=== PATIENT | female | born 1940 | race Caucasian/White ===

== ENCOUNTER 2016-07-07 17:51 | Emergency (ER) | payer BC ==
--- NOTE | ~2016-07-07 | CT4 ---
[facility] A Service of [facility] RADIOLOGY TEXT RESULTS PATIENT: LEONARD LU LOCATION: [facility] : 42 UNIT #: [id number] AGE: [address]: Jerardo Trent MD SEX: F ORDER DR: [id number] [facility] [address]. [place], [place] [address] [id number] MR#: [id number] #: [id number] NAME: LEONARD LU : 1940 SEX: F STUDY DATE/TIME: 07/07/2016 18:50 UNIT: [facility] ROOM: STUDY DESCRIPTION: CT Abd and Pelv Wo Cont Attending Physician: Jerardo Trent M.D. Ordering Physician: Jerardo Trent M.D. Primary Care Physician: Nigel Marcelo M.D. MEDICAL IMAGING REPORT This report is preliminary unless electronic signature is present EXAM CT of abdomen and pelvis without contrast. DATE OF EXAM 07/07/2016 HISTORY Diffuse abdomen pain, nausea and vomiting since yesterday. TECHNIQUE NOTE: This CT exam was performed with one or more of the following radiation dose reduction techniques: automatic exposure control, adjustment of mA and/or kV according to patient size, and iterative reconstruction. FINDINGS CT abdomen and pelvis was performed without contrast. CT ABDOMEN: Cholecystectomy. No hepatic mass or biliary dilatation. The spleen, pancreas, kidneys, and adrenal glands are unremarkable. Incidental 1 cm cyst in the medial lower pole left kidney. Normal caliber abdominal aorta. Prior anterior abdominal wall hernia repair. No bowel dilatation. No adenopathy or ascites. CT PELVIS: Moderate to moderately extensive sigmoid diverticulosis but no evidence of diverticulitis. The uterus and adnexa are unremarkable. Urinary bladder is decompressed. IMPRESSION 1. No acute findings in the abdomen or pelvis. 2. No urinary obstruction or bowel obstruction. 3. Sigmoid diverticulosis but no diverticulitis. 4. Prior anterior abdominal wall hernia repair and cholecystectomy. [facility] A Service [facility] RADIOLOGY TEXT RESULTS PATIENT: LEONARD LU LOCATION: [facility] : 42 UNIT #: [id number] AGE: [address]: Jerardo Trent MD SEX: F ORDER DR: Dictated by... Josef Hicks M.D. THIS IS AN ELECTRONICALLY VERIFIED REPORT Josef Hicks M.D. at 07/07/2016 11:26 PM LAURA/meir TD: 07/07/2016 23:08 JOB #: [id number] MEDICAL IMAGING REPORT Page 1 of 1 COPY
[~2016-07-07 17:51] MED LIST: CALCIUM 500 + D1 TAB PO; CALCIUM 600 +1 EAC6 PO; CENTRUM PO; CHLOROSEPTIC SPRAY; FISH OIL 1,0001 CAP PO; FOSAMAX PO; GLUCOSAMINE CHONDR PO; LORTAB 7.5-5001 TAB PO; OSTEO BI-FLEX1 EACH PO; VASOTEC PO; VIT B-12 PO; ZOCOR PO
[2016-07-07 18:37] LABS: BASOPHIL% 0.3 % (0-2.5); HEMATOCRIT 44.7 % (35.0-45.0); HEMOGLOBIN 14.7 gm/dL (12.0-16.0); LYMPHOCYTE# 0.9 X10e3 (1.0-3.5); LYMPHOCYTE% 9.5 % (17.0-45.0); MEAN CELL VOLUME 91.4 FL (83-96); MEAN CORPUSCULAR HGB CONC 32.9 g/dL (30-36); MEAN PLATELET VOLUME 7.6 FL (6.5-11.5); MONOCYTE# 0.4 X10e3 (0-1.0); MONOCYTE% 4.4 % (3.0-12.0); NEUTROPHIL# 7.8 X10e3 (1.5-7.1); NEUTROPHIL% 85.8 % (40-75); PLATELET COUNT 184 X10e3 (140-420); RED BLOOD COUNT 4.89 X10e (3.90-5.30); RED CELL DISTRIBUTION WIDTH 13.1 % (11.0-15.5); WHITE BLOOD COUNT 9.1 X10e3 (4.0-10.5)
[2016-07-07 18:39] LABS: DIFF IND NO
[2016-07-07 18:55] LABS: ALBUMIN SERUM 4.3 g/dL (3.5-5.0); BILIRUBIN, DIRECT 0.1 mg/dL (0.0-0.2); BILIRUBIN,INDIRECT 0.8 mg/dL (0.0-0.9); BILIRUBIN,TOTAL 0.9 mg/dL (0.2-2.0); BUN/CREATININE RATIO 21.42; CALCIUM SERUM 9.2 mg/dL (8.4-10.2); CREATININE SERUM 0.7 mg/dL (0.6-1.4); GLOM FILT RATE Estimated 84.8 mL/min (>60); POTASSIUM 4.2 mmol/L (3.5-5.1); PROTEIN TOTAL SERUM 7.4 g/dL (6.0-8.3)
[2016-07-07 19:02] LABS: URINE SOURCE CLEAN CATCH
[2016-07-07 19:05] LABS: URINE APPEARANCE CLEAR; URINE BILIRUBIN NEG (NEG); URINE BLOOD 2+ (NEG); URINE COLOR DK YELLOW; URINE GLUCOSE NEG (NEG); URINE KETONE 2+ (NEG); URINE LEUKOCYTE ESTERASE TRACE (NEG); URINE NITRATE NEG (NEG); URINE PROTEIN 1+ (NEG); URINE SPECIFIC GRAVITY 1.024 (1.003-1.035)
[2016-07-07 19:08] LABS: CULTURE INDICATED? YES; URINE BACTERIA AUWI NEG (NEGATIVE); URINE SQUAMOUS EPITHELIAL CELL OCC /[HPF]
== END 2016-07-07 20:30 | disposition home or self-care (01) ==
LOC: CED 17:51
PROVIDERS: Emergency Medicine
DX: R11.2 Nausea with vomiting, unspecified (principal); R10.31 Right lower quadrant pain; R10.32 Left lower quadrant pain; E78.5 Hyperlipidemia, unspecified; Z90.49 Acquired absence of other specified parts of digestive tract
CPT/HCPCS: 36415; 74176; 80048; 80076; 81003; 83690; 85025; 87086; 96361; 96374; 96376; 99284; J2405